=== PATIENT | female | born 1940 | race Caucasian/White ===

== ENCOUNTER → 2019-04-02 | Outpatient (CLI) | payer OTHER | END | disposition home or self-care (01) | LOC: PCVCCLINIC 14:27 | PROVIDERS: ATTEND Internal Medicine Cardiovascular Disease | DX: I35.0 Nonrheumatic aortic (valve) stenosis (principal); I10 Essential (primary) hypertension; E78.5 Hyperlipidemia, unspecified; E11.9 Type 2 diabetes mellitus without complications; E03.9 Hypothyroidism, unspecified; R09.89 Other specified symptoms and signs involving the circulatory and respiratory systems; Z88.0 Allergy status to penicillin; Z86.2 Personal history of diseases of the blood and blood-forming organs and certain disorders involving the immune mechanism; Z79.899 Other long term (current) drug therapy; Z72.89 Other problems related to lifestyle | CPT/HCPCS: 36415; 80061; 93005; G0463 ==

== ENCOUNTER → 2019-04-03 | Outpatient (CLI) | payer OTHER ==
--- NOTE | 2019-04-03 10:23 | PCVCIMAG ---
EXAM: BILATERAL CAROTID DUPLEX INDICATION: Carotid Occlusive Disease. FINDINGS: Doppler Measurements (centimeters per second): RIGHT: Peak CCA-98, Peak ECA-69, Diastolic ICA-25, Peak ICA-98, ICA/CCA Ratio-1.0. LEFT: Peak CCA-90, Peak ECA-82, Diastolic ICA-44, Peak ICA-120, ICA/CCA Ratio-1.3. RIGHT CAROTID: The carotid bulb has moderate plaque. The proximal internal carotid artery shows <40% stenosis. The common carotid artery shows no significant stenosis. The external carotid artery shows no significant stenosis. LEFT CAROTID: The carotid bulb has moderate plaque. The proximal internal carotid artery shows 40-50% stenosis. The common carotid artery shows no significant stenosis. The external carotid artery shows no significant stenosis. Antegrade flow in both vertebral arteries. IMPRESSION: <40% stenosis of the right internal carotid artery with moderate plaque. 40-50% stenosis of the left internal carotid artery with moderate plaque. LOC:[place] [id number]
--- NOTE | 2019-04-03 10:39 | PCVCIMAG ---
APPROVED REPORT Study performed: 04/03/2019 08:48:30 EXAM: Comprehensive 2D, Doppler, and color-flow Echocardiogram Patient Location: Echo lab Status: routine BSA: 1.46 HR: 63 bpmBP: 160/60 mmHg Rhythm: NSR Other Information Study Quality: Good Risk Factors: Cardiac Risk Factors: HTN, Hyperlipidemia Indications Diabetes Hypertension/HDD Aortic Stenosis, Hyperlipidemia 2D Dimensions IVSd: 11.72 (7-11mm)LVOT Diam: 17.14 (18-24mm) LVDd: 32.75 mm PWd: 11.64 (7-11mm)Ascending Ao: 29.41 (22-36mm) LVDs: 25.59 (25-40mm) Left Atrium: 40.49 (27-40mm) Aortic Root: 22.48 mm LV Single Plane 4CH: 65.56 % LV Single Plane 2CH: 58.17 % Volumes Left Atrial Volume (Systole) Single Plane 4CH: 56.29 mLSingle Plane 2CH: 36.16 mL LA ESV Index: 34.00 mL/m2 Aortic Valve AoV Peak Vinay.: 3.83 m/s AO Peak Gr.: 58.65 mmHgLVOT Max P.87 mmHg AO Mean Gr.: 34.00 mmHgLVOT Mean P.58 mmHg AO V2 Mean: 2.81 m/sLVOT Max V: 1.10 m/s AO V2 VTI: 94.49 cmLVOT Mean V: 0.75 m/s PATO (VTI): 0.65 [id number] V1 VTI: 26.73 cm PATO Vmax: 0.66 cm2 AI Vmax: 3.41 m/sSV (LVOT): 61.63 mL AI Rabun: 0.69 m/s2 AI PHT: 1433.53 ms Mitral Valve E/A Ratio: 1.0 MV Decel. Time: 226.97 ms MV E Max Vinay.: 1.04 m/s MV A Vinay.: 1.07 m/s Pulmonary Valve PV Peak Gr.: 3.53 mmHg Pulmonary Vein P Vein S: 0.67 m/sP Vein A: 0.42 m/s P Vein D: 0.53 m/sP Vein A Dur.: 90.0 msec P Vein S/D Ratio: 1.26 Tricuspid Valve TR Peak Vinay.: 2.77 m/s TR Peak Gr.: 30.69 mmHg Left Ventricle The left ventricle is normal size. There is normal LV segmental wall motion. Mild concentric left ventricular hypertrophy. Left ventricular systolic function is normal. The left ventricular ejection fraction is within the normal range. LVEF is 60%. The left ventricular diastolic function is normal. Right Ventricle The right ventricle is normal size. The right ventricular systolic function is normal. Atria The left atrium size is normal. The right atrium size is normal. Aortic Valve Aortic valve leaflets are moderately thickened. Mild aortic regurgitation. Peak aortic gradient is 59mmHg. Mean gradient is 34mmHg. Calculated aortic valve area is .7cm2. Mitral Valve Mild mitral annular calcification. Mild to moderate mitral regurgitation. No evidence of mitral valve stenosis. Tricuspid Valve The tricuspid valve is normal in structure. Mild tricuspid regurgitation. Pulmonary artery pressure is 38mmHg. Pulmonic Valve The pulmonary valve is normal in structure. There is no pulmonic valvular regurgitation. Great Vessels The aortic root is normal in size. IVC is normal in size and collapses >50% with inspiration. Pericardium There is no pericardial effusion. <Conclusion> The left ventricle is normal size. Mild concentric left ventricular hypertrophy. LVEF is 60%. The left ventricular diastolic function is normal. The right ventricle is normal size. The left atrium size is normal. Aortic valve leaflets are moderately thickened. Mild aortic regurgitation. Peak aortic gradient is 59mmHg. Mean gradient is 34mmHg. Calculated aortic valve area is .7cm2. Mild mitral annular calcification. Mild to moderate mitral regurgitation. Mild tricuspid regurgitation. Pulmonary artery pressure is 38mmHg. The aortic root is normal in size. There is no pericardial effusion.
== END | disposition home or self-care (01) ==
LOC: PCVCIMAG 08:55
PROVIDERS: ATTEND Internal Medicine Cardiovascular Disease
DX: I08.1 Rheumatic disorders of both mitral and tricuspid valves (principal); E78.5 Hyperlipidemia, unspecified; E08.00 Diabetes mellitus due to underlying condition with hyperosmolarity without nonketotic hyperglycemic-hyperosmolar coma (NKHHC); Z88.5 Allergy status to narcotic agent; I10 Essential (primary) hypertension
CPT/HCPCS: 93306; 93880